=== PATIENT | female | born 1945 | race Caucasian/White ===

== ENCOUNTER → 2016-05-13 | Outpatient (CLI) | payer OTHER ==
--- NOTE | 2016-05-13 15:55 | MA ---
Screening Digital Mammogram Clinical Indications: Routine screening. Technique: Standard cephalocaudal and mediolateral oblique projections were obtained. This examinat ion was processed by the [employer] computer aided detection system. Comparison: February 2015 and January 2007. Breast density: A; The breast tissue is mostly fat. Findings: CAD was reviewed. No suspicious findings are identified. Impression: Negative mammogram. BI-RADS 1. Recommendation: Routine screening is recommended in one year, as long as physical examination is jackelin ign in this patient with extremely dense breast parenchyma. [facility] will send a result letter to the patient. Negative mammography should not preclude additional workup of a clinically suspicious finding. The patient's information is entered into a reminder system with a target due date for her next mammo gram.
== END ==
LOC: CIMAGING 10:42
DX: Z12.31 Encounter for screening mammogram for malignant neoplasm of breast (principal)
CPT/HCPCS: G0202

== ENCOUNTER → 2016-11-14 | Outpatient (CLI) | payer OTHER ==
[~2016-11-14] MED LIST: FUROSEMIDE 40 MG/4 ML VIAL ONE
== END ==
LOC: FIMAGING 12:30
PROVIDERS: ATTEND Physician Assistant Medical
DX: Q63.8 Other specified congenital malformations of kidney (principal); R10.9 Unspecified abdominal pain
CPT/HCPCS: 78708; A9562; J1940

== ENCOUNTER → 2017-03-09 | Outpatient (CLI) | payer OTHER | LOC: CIMAGING 10:04 | PROVIDERS: ATTEND Specialist | DX: N13.30 Unspecified hydronephrosis (principal); N13.4 Hydroureter | CPT/HCPCS: 76770-PO ==

== ENCOUNTER → 2017-10-02 | Outpatient (CLI) | payer OTHER | LOC: CIMAGING 12:05 | PROVIDERS: ATTEND Family Medicine | DX: Z12.31 Encounter for screening mammogram for malignant neoplasm of breast (principal) ==

== ENCOUNTER → 2018-03-25 | Outpatient (CLI) | payer OTHER ==
[~2018-03-25] MED LIST changes: -FUROSEMIDE 40 MG/4 ML VIAL ONE; +IOPAMIDOL (ISOVUE-300) 100 ML BTL ONE
== END ==
LOC: CIMAGING 11:04
PROVIDERS: ATTEND Specialist
DX: N13.5 Crossing vessel and stricture of ureter without hydronephrosis (principal); R10.9 Unspecified abdominal pain
CPT/HCPCS: 74178; Q9967

== ENCOUNTER 2018-05-06 07:32 | Inpatient (IN) | payer OTHER ==
[2018-05-06] MEDS ORDERED: LR 1,000 ML IV ONE (07:53)
[2018-05-06] MEDS ORDERED: LIDOCAINE 1% 2 ML INJ ID PRN (07:53)
--- NOTE | 2018-05-06 08:53 | PDHPUP ---
History & Physical Update H&P update statement: This history and physical update is based on an assessment of the patient which was completed after admission or registration (within 24 hours), but prior to the surgery/procedure. H&P update: no change in patient's condition since H&P completed
[2018-05-06] MEDS ORDERED: ALBUTEROL 3 ML DEYVIAL ONE (08:58)
[2018-05-06] MEDS ORDERED: MIDAZOLAM 2 MG/2 ML VIAL IVP ONE (09:02)
--- NOTE | 2018-05-06 09:02 | PDANEPAE ---
ANE History of Present Illness 73 yo for l pyleoplasty ANE Past Medical History - Cardiovascular History Hx Hypertension: No Hx Arrhythmias: No Hx Chest Pain: No Hx Coronary Artery / Peripheral Vascular Disease: No Hx CHF / Valvular Disease: No Hx Palpitations: No - Pulmonary History Hx COPD: No Hx Asthma/Reactive Airway Disease: No Hx Recent Upper Respiratory Infection: No Hx Oxygen in Use at Home: No Hx Sleep Apnea: No Sleep Apnea Screening Result - Last Documented: Negative - Neurologic History Hx Cerebrovascular Accident: No Hx Seizures: No Hx Dementia: No - Endocrine History Hx Diabetes: No - Renal History Hx Renal Disorders: No Renal History Comment: kidney stones, - Liver History Hx Hepatic Disorders: No - Neurological & Psychiatric Hx Hx Neurological and Psychiatric Disorders: No Neurological / Psychiatric History Comment: depression - Cancer History Hx Cancer: No - Congenital Disorder History Hx Congenital Disorders: No - GI History Hx Gastrointestinal Disorders: No - Other Health History Other Health History: warts and barnicles. top partial - Chronic Pain History Chronic Pain: Yes (arthritis) - Surgical History Prior Surgeries: kidney stones ANE Review of Systems Review of Systems: - Exercise capacity METS (RN): 4 METS ANE Patient History - Allergies Allergies/Adverse Reactions: baclofen Allergy (Verified 05/06/18 07:56) Rash morphine Allergy (Verified 05/06/18 07:56) Other-Enter Comments DAIRY Allergy (Uncoded 06/12/15 16:41) - Home Medications Home medications: home medication list seen and reviewed Home Medications: Etanercept [Enbrel] 25 mg SQ MOFR 11/30/13 [Last Taken 05/03/18] Herbals/Supplements -Info Only 1 ea PO DAILY 06/12/15 [Last Taken 04/29/18] Hydrocodone/APAP 5/325 [[place] 5/325 (*)] 1 each PO DAILY PRN 05/06/18 [Last Taken 05/04/18] - NPO status NPO Status: no food or drink >8 hours NPO Since - Liquids (Date): 04/28/18 NPO Since - Liquids (Time): 17:30 NPO Since - Solids (Date): 05/05/18 NPO Since - Solids (Time): 11:00 - Anes Hx Anes Hx: no prior problems - Smoking Hx Smoking Status: Current some day smoker - Family Anes Hx Family Hx Anesthesia Complications: none ANE Labs/Vital Signs - Vital Signs Blood Pressure: 103/53 Heart Rate: 103 Respiratory Rate: 16 O2 Sat (%): 92 Height: 5 ft 4 in Weight: 58.967 kg ANE Physical Exam - Airway Neck exam: FROM Mallampati Score: Class 2 Mouth exam: normal dental/mouth exam - Pulmonary Pulmonary: no respiratory distress - Cardiovascular Cardiovascular: regular rate and rhythym - ASA Status ASA Status: II ANE Anesthesia Plan Anesthesia Plan: general endotracheal anesthesia
[2018-05-06] MEDS ORDERED: ALBUTEROL 3 ML DEYVIAL IH ONE ×2 (09:04→09:29)
[2018-05-06] MEDS ORDERED: DEXAMETHASONE 4 MG/ML VIAL ONE (09:21)
[2018-05-06] MEDS ORDERED: fentaNYL 250 MCG/5 ML INJ ONE (09:21)
[2018-05-06] MEDS ORDERED: REMIFENTANIL HCL 1 MG VIAL ONE ×2 (09:21→12:08)
[2018-05-06] MEDS ORDERED: PROPOFOL/EMULSION 500 MG/50 ML BOTTLE IV ONE ×2 (09:21→12:08)
[2018-05-06] MEDS ORDERED: BUPIVACAINE/EPI 0.5% 30 ML SDV ONE (09:21)
[2018-05-06] MEDS ORDERED: LIDOCAINE 2% JELLY 20 ML (UROJECT) ONE (09:22)
[2018-05-06] MEDS ORDERED: ROCURONIUM 100 MG/10 ML VIAL ONE (09:22)
[2018-05-06] MEDS ORDERED: ALBUMIN 5% 250 ML BOTTLE IV ONE (10:01)
[2018-05-06] MEDS ORDERED: THROMBIN(HUM PLAS)/FIBRINOG/CA 5 ML VIAL TP ONE (11:07)
[2018-05-06] MEDS: IOPAMIDOL (ISOVUE-300) 150 ML BTL ONE ×2 (11:25→11:51)
[2018-05-06] MEDS ORDERED: ONDANSETRON 4 MG/2 ML VIAL ONE (12:11)
[2018-05-06] MEDS ORDERED: SUGAMMADEX SODIUM 200 MG/2 ML VIAL IVP ONE (12:11)
[2018-05-06] MEDS ORDERED: ONDANSETRON 4 MG/2 ML VIAL IVP PRN ×2 (12:26→13:17)
[2018-05-06] MEDS ORDERED: ALBUTEROL 3 ML DEYVIAL IH PRN (12:26)
[2018-05-06] MEDS ORDERED: NALOXONE HCL 0.4 MG/ML INJ IVP PRN ×2 (12:26→13:18)
--- NOTE | 2018-05-06 12:37 | POSTOPPROG ---
Post Op Note Date of Operation: 05/06/18 Surgeon: Cabrera Alvarado (# [id number]) Anesthesia: GET(General Endotracheal) Pre-op Diagnosis: Left UPJ obstruction Post-op Diagnosis: Left UPJ obstruction Procedure: Robotically-assisted left dismembered pyeloplasty, antegrade ureteral stent Findings: See op note Inf/Abcess present in the surg proc area at time of surgery?: No EBL: Minimal (25 cc) Complications: None Drains: Smith Malagon (10 Flat ELOISE) Specimen(s): 1. Left renal pelvis 2. Left proximal ureter
[2018-05-06] MEDS ORDERED: PROMETHAZINE HCL 25 MG/ML INJ IVP PRN (13:17)
[2018-05-06] MEDS ORDERED: KETOROLAC 30 MG/1 ML SDV IVP ONE (13:17)
[2018-05-06] MEDS ORDERED: HYDROmorphONE/DILAUDID 6 MG/30 ML PCA IV PRN (13:18)
[2018-05-06] MEDS ORDERED: fentaNYL 100 MCG/2 ML INJ ONE (13:24)
[2018-05-06] MEDS: fentaNYL 100 MCG/2 ML INJ IVP PRN ×3 (13:28→13:44)
[2018-05-06] MEDS ORDERED: HYDROmorphONE/DILAUDID 2 MG/ML INJ ONE (13:48)
[2018-05-06] MEDS ORDERED: KETOROLAC 15 MG/1 ML SDV ONE (13:48)
[2018-05-06] MEDS: HYDROmorphONE/DILAUDID 2 MG/ML INJ IVP PRN ×2 (13:58→14:17)
[2018-05-06] MEDS ORDERED: KETOROLAC 15 MG/1 ML SDV IVP ONE (14:00)
--- NOTE | 2018-05-06 14:32 | GOP ---
DATE OF OPERATION: 05/06/2018 SURGEON: Cabrera Alvarado MD BRICKMASON APPRENTICE: Danielle Huston CFA ANESTHESIA: General endotracheal. PREOPERATIVE DIAGNOSIS: Symptomatic left ureteropelvic junction obstruction. POSTOPERATIVE DIAGNOSIS: Symptomatic left ureteropelvic junction obstruction. PROCEDURE PERFORMED: 1. Robotically-assisted laparoscopic left-sided dismembered pyeloplasty. 2. Antegrade left ureteral stent placement through created ureterotomy (6- Cymro by 26 cm). FINDINGS: Extremely distended left renal pelvis with narrowing at the ureteropelvic junction, but without a visualized lower pole crossing vessel. SPECIMENS: 1. Redundant left renal pelvis. 2. Proximal portion of left ureter. ESTIMATED BLOOD LOSS: Approximately 25 cc. INDICATIONS: This woman has had intermittent issues with left renal colic that appears to be related to left ureteropelvic junction obstruction. She presents for operative management at this time. The indications for the procedures, as well as potential risks and complications, were discussed with the patient preoperatively. She appeared to understand, her questions were answered, and she wished to proceed. Written informed surgical consent was thereafter obtained. DESCRIPTION OF PROCEDURE: The patient was brought to the operating room and administered general endotracheal anesthesia. A Huynh catheter was placed to gravity drainage on the bed. An orogastric tube was placed by Anesthesia and removed at the conclusion of the case. The patient was placed over the break of the table, and the table was flexed approximately 15 degrees. She was then placed in a left flank up position approximately 45 degrees with the use of a triangular pad behind her back. The right leg was flexed at the knee, and the left leg was kept straight over it with pillows in between them. All appropriate pressure points were padded thoroughly. The patient was then thoroughly secured to the table with several wide strips of tape from head to toe, running from one side of the bed to the other. The table was then tilted back and forth in maximum positions to ensure patient stability on the operating room table, and this was confirmed. The abdomen was sterilely prepped and draped in standard fashion utilizing Ioban. A Veress needle was used to obtain intraabdominal access approximately jail between the umbilicus and the xiphoid process, while staying approximately 3 cm lateral to the midline in the left upper quadrant. The abdomen was insufflated to 15 mmHg, which was the pressure maintained throughout the laparoscopic portion of the case. A 12 mm laparoscopic port was placed at this location and eventually used as the camera port. A 0 degree 12 mm robotic camera was used to examine the abdomen. There were some adhesions in the lower midline between the abdominal wall and the underlying pelvic structures which were not in the way of the operative field, and therefore not specifically addressed. There were a couple of small adhesions between the splenic flexure of the colon and the intraabdominal wall over it. These were eventually released with robotic scissors without complication. I then marked out my remaining port sites, which are as follows: An 8 mm robotic port placed in the lower portion of the left upper quadrant in the region of the midclavicular line, a 12 mm assistant prosecuting attorney laparoscopic port placed in the midline a few cm below the umbilicus, and an additional 8 mm robotic port placed in the upper portion of the left upper quadrant just below the midclavicular line, while staying just lateral to the xiphoid process. All these ports were placed under direct vision without complication. The bed was then lowered and then the table tilted so that the left flank was up approximately 90 degrees. The robot was then docked perpendicular to the table while keeping the camera post on the robot in line with the laparoscopic port to be used for the camera. The appropriate robotic arms were secured to the respective ports. I then left the patient's bedside and entered the surgeon's robotic console. The 12 mm 0 degree robotic camera was used throughout the remainder of the case. Examination of the abdomen immediately revealed a large distended renal pelvis in the left upper quadrant. The colon had been mobilized laterally as a result of this severely distended renal pelvis. I was able to mobilize the colon medially across the midline with gentle blunt and sharp scissors dissection. The inflammatory rind around the renal pelvis was then dissected free circumferentially with monopolar scissors dissection. I did this in order to completely mobilize and free the renal pelvis from the surrounding adventitial tissue. The ureteropelvic junction was identified. There were no obvious crossing lower pole renal vessels appreciated. There did appear to be some inherent intrinsic narrowing at the ureteropelvic junction that was likely the source of obstruction. The proximal left ureter was then mobilized carefully with gentle blunt dissection, while trying to maintain as much as possible adventitia along the length of the ureter for vascularity purposes. The ureter was then transected starting laterally from the renal pelvis, while keeping a lip of renal pelvis at the top of the ureter to be used as a handle for manipulation during the pyeloplasty portion of the surgery. Before completely transecting the ureter free, I did spatulate the ureter along the lateral aspect with the scissors. The ureter was then completely transected free from the renal pelvis. I then examined the renal pelvis carefully. There was significant redundancy to the renal pelvis which I thought would benefit from reduction pyeloplasty. Cold scissors dissection was then used to resect and excise a portion of the redundant renal pelvis, taking care to ensure that the infundibuli extending from the renal pelvis were not affected. This redundant renal pelvis was then removed, sent to Pathology, and labeled as the left renal pelvis. I then used a 3-0 Vicryl running suture to reapproximate the renal pelvic defect , starting superiorly and extending down towards the inferior aspect. This was done in a running fashion. Next, I utilized a 4-0 Vicryl suture to begin the pyeloplasty by reapproximating the back wall of the renal pelvis to the back wall of the ureter. This was done in a uakyza-tc-hvnezm approximating fashion. I then used a 2nd 4-0 Vicryl running suture to reapproximate the anterior wall of the renal pelvis to the anterior aspect of the proximal ureter. Once this was completed, a hydrophilic ureteral stent was inserted. I used a 0.035 inch hydrophilic guidewire, and advanced this guidewire with the stent down the ureter towards the bladder. The 6-Cymro by 26 cm hydrophilic ureteral stent was then advanced over the wire and into the bladder. The guidewire was removed , and the proximal pigtail portion of the stent was then placed within the upper portion of the renal pelvis. At this point, the excessive redundant handle at the top of the ureter was excised with scissors. I used the previously placed 3-0 Vicryl suture to close the remaining defect within the renal pelvis in a running fashion. This was further imbricated by a couple of interrupted 3-0 Vicryl sutures to reapproximate portions of the renal pelvis closure more effectively. At the conclusion of this portion of the procedure, the ureteropelvic junction was widely patent, there was a nice visual anastomotic reconstruction, and the vascularity and viability to the ureter and renal pelvis appeared to be intact. Meticulous hemostasis was maintained throughout the case. At the conclusion of the pyeloplasty, a total of 5 cc of Evicel was squirted into the operative field, overlying the ureteropelvic junction repair, the renal pelvis reconstruction, and the surrounding adventitial tissue for hemostatic purposes. A 10 flat Smith-Malagon drain was then placed in the left lateral colic gutter through the lower 8 mm robotic port site. It was then eventually secured to the skin with a 2-0 silk suture and dressed with a Biopatch, 4x4s, and Tegaderm. It was then secured to bulb suction (again, at the conclusion of the case). Placement of the Smith-Malagon drain concluded the robotic portion of the procedure. Excellent hemostasis of the operative field was confirmed at this point. I then left the robotic console and returned to the patient's bedside. 0 Vicryl suture with a fascial closure device was utilized to reapproximate the rectus fascia at the two 12 mm laparoscopic port sites. A total of 30 cc of 0.5 % Marcaine with epinephrine was used for local anesthetic. All the ports had been removed by this point. All the skin incisions were reapproximated with a running 4-0 Monocryl suture in a subcuticular fashion, followed by the application of Dermabond. The patient was then turned back over into the supine position. A Huynh catheter was kept in place. She was extubated, transferred to her bed, then taken to the recovery room. She tolerated the procedure well overall. COMPLICATIONS: None. DISPOSITION: She was transferred to the recovery room in stable condition, and will be admitted for postoperative care. /[id number]/MODL MTDD
--- NOTE | 2018-05-06 14:45 | POSTANESTH ---
Post Anesthetic Evaluation Cardiovascular Status: Normal, Stable Respiratory Status: Normal, Stable, Requires Airway Assist Level of Consciousness/Mental Status: Can Participate in Eval Pain Control: Adequate, Prn Tx Ordered Nausea/Vomiting Control: Adequate, Prn Tx Ordered Complications Possibly Related to Anesthesia: None Noted
--- NOTE | 2018-05-06 15:36 | PDMN ---
Medical Necessity Medical necessity: MCG: GRG urologic sgy: OP: robotic assist Lap L sided dismembered pyeloplasty, L ureteral stent placement through ureterotomy MAGUI FOR CPT 60250 DONE IN PT
[2018-05-06] MEDS: BALANCED SALT IRRIG SOLN 15 ML OPHT.BTL OP PRN ×2 (17:07→18:46)
[2018-05-06] MEDS: KETOROLAC 15 MG/1 ML SDV IVP SCH ×2 (18:45→23:00)
[2018-05-06] MEDS: D5W 1/2 NS 1,000 ML IV SCH (18:57)
[2018-05-06] MEDS: ACETAMINOPHEN 325 MG TAB PO PRN (21:40)
--- NOTE | 2018-05-06 22:14 | SOAPPROG ---
SOAP Progress Note Assessment/Plan: Assessment: pt complain of eye pain, left worse than right, difficult to open eyes, burning , no blurry vision. Eye visually examined, no FB, no redness. Explained to patient that likely due to dry eyes during surgery or possibly scratch unintentionally after waking up from anesthesia. Plan: 05/06/18 22:11 prenisolone eye drop ketoralac eye drop Objective: Vital Signs Temp Pulse Resp BP Pulse Ox 36.5 C 105 H 17 99/50 L 96 05/06/18 19:27 05/06/18 19:27 05/06/18 19:27 05/06/18 19:27 05/06/18 19:27 05/05/18 05/06/18 05/07/18 05:59 05:59 05:59 Intake Total 100 Output Total 226 Balance -126 - Time Spent With Patient Time Spent With Patient: 5 min ICD10 Worksheet Patient Problems: Problems Problem Status Onset Kidney stone on right side Acute Nephrolithiasis Acute UTI (urinary tract infection) Acute
[2018-05-06] MEDS: KETOROLAC 0.5% 5 ML OPHT.BTL EACHEYE SCH (22:27)
[2018-05-06] MEDS: prednisoLONE ACET 1% 5 ML OPHT.BTL EACHEYE SCH (22:29)
[2018-05-07] MEDS: D5W 1/2 NS 1,000 ML IV SCH (04:10)
[2018-05-07] MEDS: KETOROLAC 15 MG/1 ML SDV IVP SCH ×4 (05:01→23:06)
[2018-05-07] MEDS: KETOROLAC 0.5% 5 ML OPHT.BTL EACHEYE SCH ×4 (05:02→20:47)
[2018-05-07] MEDS: prednisoLONE ACET 1% 5 ML OPHT.BTL EACHEYE SCH ×4 (05:03→20:47)
[2018-05-07] MEDS: BALANCED SALT IRRIG SOLN 15 ML OPHT.BTL OP PRN (13:23)
--- NOTE | 2018-05-07 13:30 | SOAPPROG ---
SOAP Progress Note Assessment/Plan: Assessment: 1. POD 1 s/p robotically-assisted left pyeloplasty & stent placement - stable. 2. Bilateral eye pain and burning - improved on anesthesia-recommended therapy. Plan: Continue postop care, including ambulation and advancing of diet. Continue indwelling Huynh for 1-2 more days (in the setting of collecting system reconstruction with indwelling ureteral stent). 05/07/18 13:34 Subjective: Complains of mild pain (but has not needed narcotics yet postoperatively). + flatus and tolerating CLD. Ambulated once in halls today. Objective: Vital Signs Temp Pulse Resp BP Pulse Ox 36.7 C 80 16 107/45 L 93 05/07/18 11:38 05/07/18 11:38 05/07/18 11:38 05/07/18 11:38 05/07/18 11:38 Laboratory Results 05/07/18 04:10 05/07/18 04:10 05/06/18 05/07/18 05/08/18 05:59 05:59 05:59 Intake Total 1056 Output Total 711 Balance 345 Physical Exam - Physical Exam General Appearance: WD/WN, alert, no apparent distress Abdomen: soft, distended (mild), other (incisions c/d/i) Skin: warm/dry Extremities: non-tender, normal inspection Neuro/Psych: alert, normal mood/affect, oriented x 3 ICD10 Worksheet Patient Problems: Problems Problem Status Onset Kidney stone on right side Acute Nephrolithiasis Acute UTI (urinary tract infection) Acute
[2018-05-07] MEDS ORDERED: HYDROmorphONE/DILAUDID 1 MG/ML INJ IVP PRN (13:35)
--- NOTE | 2018-05-07 16:05 | ASMTCMCOM ---
CM Note CM Note Notes: Pt in for planned urology surgery, no therapies ordered. Anticipate pt will d/c when medically stable no CM d/c needs identified. CM available for changes/needs. Date Signed: 05/07/2018 04:05 PM Electronically Signed By:MICHELET Baker
[2018-05-08] MEDS: KETOROLAC 0.5% 5 ML OPHT.BTL EACHEYE SCH ×4 (05:08→22:31)
[2018-05-08] MEDS: prednisoLONE ACET 1% 5 ML OPHT.BTL EACHEYE SCH ×4 (05:09→22:31)
[2018-05-08] MEDS: ACETAMINOPHEN 325 MG TAB PO PRN (09:29)
[2018-05-08] MEDS ORDERED: HYDROCODONE/APAP 5/325 TAB PO PRN (10:53)
[2018-05-08] MEDS: IBUPROFEN 600 MG TAB PO PRN (21:52)
[2018-05-09] MEDS: prednisoLONE ACET 1% 5 ML OPHT.BTL EACHEYE SCH ×2 (05:21→13:19)
[2018-05-09] MEDS: KETOROLAC 0.5% 5 ML OPHT.BTL EACHEYE SCH ×2 (05:21→13:19)
[2018-05-09 07:39] VITALS: BP 125/82
--- NOTE | 2018-05-09 11:53 | SOAPPROG ---
SOAP Progress Note Assessment/Plan: Assessment: Chart review yesterday, stopped in to see pt yesterday but patient was sleeping so did not wake - Doing well today -still w O2 requirements, will consult Home O2 Plan: OK for dc home w home O2 - DC drain, 05/09/18 11:51 Subjective: doing well Objective: Vital Signs Temp Pulse Resp BP Pulse Ox 36.3 C 69 16 125/82 H 93 05/09/18 07:36 05/09/18 07:36 05/09/18 07:36 05/09/18 07:36 05/09/18 07:36 Laboratory Results 05/07/18 04:10 05/07/18 04:10 05/08/18 05/09/18 05/10/18 05:59 05:59 05:59 Intake Total 2850 1000 Output Total 1635 1760 15 Balance 1215 -760 -15 - Pending Discharge Pending Discharge Within 24 Hours: Yes Pending Discharge Within 48 Hours: Yes Pending Discharge Date: 05/10/18 Pending Discharge Time: 11:00 Physical Exam - Physical Exam EENT: PERRL/EOMI Neck: non-tender Respiratory: chest non-tender Cardiac/Chest: normal peripheral pulses Abdomen: normal bowel sounds Skin: normal color Lymphatic: no adenopathy ICD10 Worksheet Patient Problems: Problems Problem Status Onset Kidney stone on right side Acute Nephrolithiasis Acute UTI (urinary tract infection) Acute
[2018-05-09] MEDS ORDERED: HYDROCODONE/APAP 5/325 TAB PO PRN (11:56)
--- NOTE | 2018-05-09 12:00 | PDHOMEO2F ---
Home Oxygen Face to Face Home Orders: I certify that a physician or a nurse practitioner or physician's contact center assistant has had a [id number] encounter with this patient on the date of this order due to the diagnosis listed, which relates to the primary reason the patient requires home oxygen. Alternative treatments have been tried, or considered, and deemed ineffective. It is anticipated that supplemental oxygen will result in improvement with treatment. Home oxygen qualifying diagnosis: hypoxia postop w ambulation SpO2 on room air (%): 80 Frequency of home oxygen needed: continuous Home oxygen liters per minute: 4 Home oxygen delivery device: nasal cannula Concentrator: No E-tanks for mobility and back up: Yes If ordering portable O2, is the patient mobile in the home?: Yes I certify that, based on these findings, the home oxygen is medically necessary for this patient for the following length of time. Length of time home oxygen needed: 1 month
--- NOTE | 2018-05-09 12:37 | ASMTLACE ---
[place] Length of stay for Answers: 3 days current admission Acuity / Level of Answers: Yes Care: Did the patient have an inpatient admission? Comorbidities - select Answers: Other Notes: Rheumatoid arthritis, H TN all that apply # of Emergency department Answers: 0 visits in the last 6 months Score: 7 Date Signed: 05/09/2018 12:36 PM Electronically Signed By:Samantha Caldera RN
--- NOTE | 2018-05-09 12:43 | ASMTDCNOTE ---
Case Management Discharge Discharge Order Complete? Answers: Yes Patient to Obtain Answers: via Family Medications Transportation Arranged Answers: Family/Friends Discharge Comments Notes: Medically cleared for discharge to home. She will dc with home oxygen. No other needs noted at this time. Date Signed: 05/09/2018 12:43 PM Electronically Signed By:Samantha Caldera RN
[2018-05-09] MEDS: IBUPROFEN 600 MG TAB PO PRN (13:20)
--- NOTE | 2018-05-09 16:50 | GDS ---
DATE OF OPERATION: 05/06/2018 SURGEON: Dr. Cabrera Alvarado [facility] COURSE: The patient tolerated the above procedure well and she was transferred to the [facility] floor, and did very well. During the course of her treatment, she has had issues with hypoxia. Hossein delaney will send her home with home oxygen. This is a hypoxia only with ambulation, and she will follow u p with Dr. Alvarado in 2 to 3 weeks. She will need no narcotics. Her home medications are as listed i n the medication reconciliation. /[id number]/MODL
[2018-05-10] MEDS ORDERED: Herbals/Supplements -Info Only PO SCH (09:00)
[2018-05-10] MEDS ORDERED: Etanercept [Enbrel] 25 MG SQ SCH (11:56)
== END 2018-05-09 15:30 | disposition home or self-care (01) | DRG 661 ==
LOC: F3E 07:32 → F1N 15:30
PROVIDERS: ADMIT Specialist; ATTEND Specialist
DX: N13.0 Hydronephrosis with ureteropelvic junction obstruction (principal); R31.29 Other microscopic hematuria; R09.02 Hypoxemia; F32.9 Major depressive disorder, single episode, unspecified; F17.210 Nicotine dependence, cigarettes, uncomplicated
CPT/HCPCS: C1769; C2625; J0696; J1100; J1170; J1885; J2250; J2405; J2704; J3010; J7613; P9041; Q9967